=== PATIENT | male | born 1970 | race Caucasian/White ===

== ENCOUNTER → 2017-04-22 | Outpatient (CLI) | payer OTHER | END | disposition home or self-care (01) | LOC: CDC 11:32 | DX: I45.10 Unspecified right bundle-branch block (principal); I44.4 Left anterior fascicular block; R94.31 Abnormal electrocardiogram [ECG] [EKG] | CPT/HCPCS: 93000 ==

== ENCOUNTER 2017-09-29 10:02 | Day surgery (SDC) | payer OTHER ==
[~2017-09-29] VITALS: Ht 177.8 cm; Wt 120.0 kg
[~2017-09-29 10:02] MED LIST: ASPIRIN325 MG PO; LISINOPRIL5 MG PO; METHADONE10 MG PO; PROTONIX40 MG PO; [UNRECOGNIZED DRUG - OTHER] PO
== END 2017-09-29 16:45 | disposition home or self-care (01) ==
LOC: CATH 10:02
PROC: B2111ZZ Fluoroscopy of Multiple Coronary Arteries using Low Osmolar Contrast (ICD-10-PCS; principal; 2017-09-29)
PROC: 4A023N7 Measurement of Cardiac Sampling and Pressure, Left Heart, Percutaneous Approach (ICD-10-PCS; principal; 2017-09-29)
DX: I25.10 Atherosclerotic heart disease of native coronary artery without angina pectoris (principal); I10 Essential (primary) hypertension; E66.01 Morbid (severe) obesity due to excess calories; Z68.41 Body mass index [BMI] 40.0-44.9, adult; F17.200 Nicotine dependence, unspecified, uncomplicated
CPT/HCPCS: C1769; C1887; J1200; J1644; J2250; J3010